=== PATIENT | female | born 1945 | race Caucasian/White ===

== ENCOUNTER 2016-11-02 00:40 | Inpatient (IN) | payer MEDICARE, OTHER ==
[2016-11-02] VITALS (7 sets, daily range): BP systolic 118–189; BP diastolic 57–79; PULSE 76–89; RESP 16–18; TEMP 96.5–98.9; O2SAT 75–100
[~2016-11-02] VITALS: Ht 165.1 cm; Wt 67.0 kg
[2016-11-02] MEDS ORDERED: GABA300C5 PO (02:06)
[2016-11-02] MEDS ORDERED: LEVE500 PO (02:06)
[2016-11-02] MEDS ORDERED: ROSU20 PO (02:06)
[2016-11-02] MEDS ORDERED: FLUO-1 PO (02:06)
[2016-11-02] MEDS ORDERED: ZOFR4TAB PO (02:07)
[2016-11-02] MEDS ORDERED: ASPI81CH CHEW (02:07)
[2016-11-02] MEDS ORDERED: DILA4TAB2 PO (02:08)
[2016-11-02] MEDS ORDERED: QUET50XR PO (02:08)
[2016-11-02] MEDS ORDERED: insulin (02:13)
[2016-11-02] MEDS ORDERED: HALOPERIDOL LACTATE 5 MG/ML AMP ONE (02:16)
[2016-11-02] MEDS ORDERED: diphenhydrAMINE HCL 50 MG/ML VIAL ONE (02:16)
[2016-11-02] MEDS ORDERED: HALOPERIDOL LACTATE 5 MG/ML AMP IM ONE (02:30)
[2016-11-02] MEDS ORDERED: diphenhydrAMINE HCL 50 MG/ML VIAL IM ONE (02:30)
[2016-11-02 02:36] LABS: BLOOD, URINE TRACE (NEG); GLUCOSE,URINE NEG (NEG); KETONE, URINE NEG (NEG); NITRITE,URINE NEG (NEG); PH, URINE 5.5 (5.0-8.5); SQUAMOUS EPITHELIAL CELL URINE 1 /hpf (0-5); URINE COLOR LIGHT-YELLOW (YELLW/STRAW)
[2016-11-02 02:41] LABS: COMMENT (UR) CULT NOT INDICATED; CULTURE IF INDICATED CULT NOT INDICATED
[2016-11-02 02:46] LABS: AMPHETAMINE, URINE NEG (NEG); BARBITURATES, URINE NEG (NEG); COCAINE, URINE NEG (NEG)
[2016-11-02] MEDS ORDERED: LORazepam 2 MG/ML VIAL IM ONE (03:15)
[2016-11-02 03:57] LABS: AUTOMATED NEUTROPHIL # 5.1 TH/MM3 (1.8-7.7); BASOPHIL % 0.3 % (0.0-2.0); EOSINOPHIL # 0.2 TH/MM3 (0-0.4); EOSINOPHIL % 2.2 % (0.0-4.0); HEMATOCRIT 42.6 % (35.0-46.0); HEMO FLAGS DIFF FINAL; LYMPH % 31.6 % (9.0-44.0); LYMPHOCYTE # 2.7 TH/MM3 (1.0-4.8); MEAN CELL VOLUME 93.1 FL (80.0-100.0); MEAN CORPUSCULAR HEMOGLOBIN 30.8 PG (27.0-34.0); MEAN CORPUSCULAR HGB CONC 33.1 % (32.0-36.0); MONO % 7.3 % (0.0-8.0); NEUT % 58.6 % (16.0-70.0); PLATELET COUNT 166 TH/MM3 (150-450); RED BLOOD COUNT 4.57 MIL/MM3 (4.00-5.30); RED CELL DISTRIBUTION WIDTH 13.2 % (11.6-17.2); WHITE BLOOD COUNT 8.6 TH/MM3 (4.0-11.0)
[2016-11-02 04:18] LABS: ALT (GPT) 22 U/L (10-53); ANION GAP 6 MEQ/L (5-15); AST (GOT) 16 U/L (15-37); BICARBONATE 31.6 MEQ/L (21.0-32.0); BLOOD UREA NITROGEN 6 MG/DL (7-18); CHLORIDE 106 MEQ/L (98-107); GLOMERULAR FILTRATION RATE 52 ML/MIN (>89); POTASSIUM 3.8 MEQ/L (3.5-5.1); SODIUM (NA) 144 MEQ/L (136-145)
[2016-11-02 04:20] LABS: ALKALINE PHOSPHATASE 75 U/L (45-117); TOTAL BILIRUBIN ADULT 0.3 MG/DL (0.2-1.0)
--- NOTE | 2016-11-02 05:02 | PD ---
HPI Chief Complaint: Psychiatric Symptoms Time Seen by Provider: 02:16 Travel History International Travel<30 days: No Contact w/Intl Traveler<30days: No Traveled to known affect area: No History of Present Illness HPI 71 year-old woman with a history of schizophrenia presents to the emergency department with worsening behavior changes in confusion over the past 2 months or so. states she's not really been taken off her medications. She has a history of UTI symptoms in the past. History Past Medical History Narrative Medical Paranoid schizophrenia Diabetes Seizure CAD, history of CABG Tetanus Vaccination: Unknown Influenza Vaccination: Yes : 3 Para: 3 Social History Alcohol Use: No Tobacco Use: No Allergies-Medications (Allergen,Severity, Reaction): Coded Allergies: Contrast Media (Verified Allergy, Unknown, 11/02/16) Iodine (Verified Allergy, Unknown, 11/02/16) Levaquin (Verified Allergy, Unknown, 11/02/16) Shellfish (Verified Allergy, Unknown, 11/02/16) Reported Meds & Prescriptions Reported Meds & Active Scripts Active Reported [insulin] Seroquel XR (Quetiapine Fumarate) 50 Mg Tab 25 Mg PO DAILY Dilaudid (Hydromorphone HCl) 4 Mg Tab 4 Mg PO Q6H PRN Aspirin 81 Mg Chew 81 Mg CHEW DAILY Zofran (Ondansetron HCl) 4 Mg Tab 4 Mg PO Q6HR PRN Crestor (Rosuvastatin Calcium) 20 Mg Tab 20 Mg PO DAILY Keppra (Levetiracetam) 500 Mg Tab 500 Mg PO BID Gabapentin 300 Mg Cap 300 Mg PO TID Prozac (Fluoxetine HCl) 10 Mg Cap 10 Mg PO DAILY Review of Systems ROS Limitations: Clinical Condition Physical Exam Narrative GENERAL: 71 year-old woman, no acute distress. SKIN: Focused skin assessment warm/dry. HEAD: Atraumatic. Normocephalic. NECK: Trachea midline. No JVD. CARDIOVASCULAR: Regular rate and rhythm. No murmur appreciated. RESPIRATORY: No accessory muscle use. Clear to auscultation. Breath sounds equal bilaterally. GASTROINTESTINAL: Abdomen soft, non-tender, nondistended. Hepatic and splenic margins not palpable. MUSCULOSKELETAL: No obvious deformities. No edema. NEUROLOGICAL: Awake and alert. No obvious cranial nerve deficits. Motor grossly within normal limits. Normal speech. PSYCHIATRIC: Patient with bizarre behavior, not making sense, appears delusional. Aggressive. Data Data Last Documented VS Vital Signs Date Time Temp Pulse Resp B/P Pulse Ox O2 Delivery O2 Flow Rate FiO2 11/02/16 04:16 77 18 158/70 98 Room Air 11/02/16 00:46 96.5 Orders Complete Blood Count With Diff (11/02/16 02:14) Comprehensive Metabolic Panel (11/02/16 02:14) Urinalysis - C+S If Indicated (11/02/16 02:14) Psych Screen (11/02/16 02:14) Drug Screen, Random Urine (11/02/16 02:14) Alcohol (Ethanol) (11/02/16 02:14) Haloperidol Inj (Haldol Inj) (11/02/16 02:30) Diphenhydramine Inj (Benadryl Inj) (11/02/16 02:30) Diphenhydramine Inj (Benadryl Inj) (11/02/16 02:16) Haloperidol Inj (Haldol Inj) (11/02/16 02:16) Lorazepam Inj (Ativan Inj) (11/02/16 03:15) Labs Laboratory Tests Test 11/02/16 11/02/16 11/02/16 02:14 02:15 03:40 Urine Opiates Screen NEG Urine Barbiturates Screen NEG Urine Amphetamines Screen NEG Urine Benzodiazepines Screen NEG Urine Cocaine Screen NEG Urine Cannabinoids Screen NEG Urine Color LIGHT-YELLOW Urine Turbidity CLEAR Urine pH 5.5 Urine Specific [place] 1.004 Urine Protein NEG mg/dL Urine Glucose (UA) NEG mg/dL Urine Ketones NEG mg/dL Urine Occult Blood TRACE Urine Nitrite NEG Urine Bilirubin NEG Urine Urobilinogen LESS THAN 2.0 MG/DL Urine Leukocyte Esterase NEG Urine RBC LESS THAN 1 /hpf Urine Squamous Epithelial 1 /hpf Cells Microscopic Urinalysis Comment CULT NOT INDICATED White Blood Count 8.6 TH/MM3 Red Blood Count 4.57 MIL/MM3 Hemoglobin 14.1 GM/DL Hematocrit 42.6 % Mean Corpuscular Volume 93.1 FL Mean Corpuscular Hemoglobin 30.8 PG Mean Corpuscular Hemoglobin 33.1 % Concent Red Cell Distribution Width 13.2 % Platelet Count 166 TH/MM3 Mean Platelet Volume 10.3 FL Neutrophils (%) (Auto) 58.6 % Lymphocytes (%) (Auto) 31.6 % Monocytes (%) (Auto) 7.3 % Eosinophils (%) (Auto) 2.2 % Basophils (%) (Auto) 0.3 % Neutrophils # (Auto) 5.1 TH/MM3 Lymphocytes # (Auto) 2.7 TH/MM3 Monocytes # (Auto) 0.6 TH/MM3 Eosinophils # (Auto) 0.2 TH/MM3 Basophils # (Auto) 0.0 TH/MM3 CBC Comment DIFF FINAL Differential Comment Sodium Level 144 MEQ/L Potassium Level 3.8 MEQ/L Chloride Level 106 MEQ/L Carbon Dioxide Level 31.6 MEQ/L Anion Gap 6 MEQ/L Blood Urea Nitrogen 6 MG/DL Creatinine 1.05 MG/DL Estimat Glomerular Filtration 52 ML/MIN Rate Random Glucose 110 MG/DL Calcium Level 8.9 MG/DL Total Bilirubin 0.3 MG/DL Aspartate Amino Transf 16 U/L (AST/SGOT) Alanine Aminotransferase 22 U/L (ALT/SGPT) Alkaline Phosphatase 75 U/L Total Protein 7.1 GM/DL Albumin 3.5 GM/DL Ethyl Alcohol Level LESS THAN 3 MG/DL [facility] Medical Decision Making Medical Screen Exam Complete: Yes Emergency Medical Condition: Yes Interpretation(s) LABS: CBC is unremarkable CMP is unremarkable UA is unremarkable Your injections negative Alcohol is negative Differential Diagnosis Schizophrenia, altered mental status,: Infection, other Narrative Course Medical decision making 71-year-old with history of schizophrenia presents emergent arm with aggressive bizarre psychotic behavior. Labs unremarkable. Patient is medically clear for psychiatric evaluation. Diagnosis Primary Impression: Schizophrenia Jorge Saavedra MD Nov 02, 2016 05:02
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
[2016-11-02] MEDS ORDERED: ALUMINUM/MAGNESIUM/SIMETH 30 ML CUP PO PRN (13:45)
[2016-11-02] MEDS ORDERED: MAGNESIUM HYDROXIDE SUSP 30 ML CUP PO PRN (13:45)
--- NOTE | 2016-11-02 17:20 | HHI.HP ---
Provisional Diagnosis Admission Date Nov 02, 2016 at 13:37 [place] I. 1. Schizophrenia, undifferentiated type, acute exacerbation [place] II. Deferred [place] III. History of CVA [place] V. GAF is 30 presently Certification of Person's Competence To Provide Express and Informed Consent I have personally examined Lucy Rucker , a person being served at [facility] on, Nov 02, 2016 17:20. Express and informed consent means consent voluntarily given in writing, by a competent person, after sufficient explanation and disclosure of the subject matter involved to enable the person to make a knowing and willful decision without any element of force, fraud, deceit, duress, or other form of constraint or coercion. This person is 18 years of age or older, is not now known to be incompetent to consent to treatment with a guardian advocate, and does not have a health care surrogate or proxy currently making medical treatment decisions. I have found this person to be one of the following: [] Competent to provide express and informed consent, as defined above, for voluntary admission to this facility and is competent to provide express and informed consent for treatment. He/she has the consistent capacity to make well reasoned, willful, and knowing decisions concerning his or her medical or mental health treatment. The person fully and consistently understands the purpose of the admission for examination/placement and is fully capable of personally exercising all rights assured under [place] [x] Incompetent to provide express and informed consent to voluntary admission, and this is incompetent to provide express and informed consent to treatment. The person must be transferred to involuntary status and a petition for a guardian advocate filed with the Circuit Court. [] Refusing to provide express and informed consent to voluntary admission but is competent to provide express and informed consent for treatment. The person must be discharged or transferred to involuntary status. Form shall be completed within 24 hours of a person's arrival at the receiving facility and filed in the clinical record of each person: 1. Admitted on a voluntary basis 2. Permitted to provide express and informed consent to his/her own treatment 3. Allowed to transfer from involuntary to voluntary status 4. Prior to permitting a person to consent to his or her own treatment after having been previously found incompetent to consent to treatment. History of Present Illness Capacity: Lacks Capacity HPI Ms. Rucker is a 71-year-old female with a history of schizophrenia who presented to the ED with worsening behavioral disturbance. Patient was evaluated by the psychiatric nurse practitioner and placed under the Mueller act. Reviewing the electronic medical record, I note that this is the patient's first visit to [place]. Patient seen and examined with nurse Joe. Chart reviewed. Case discussed with nursing staff. On my examination today, patient is presently calm. She says that she has come into the hospital because "my and I are not getting along. I show my love differently. I throw things." Apparently, the patient believes that by throwing objects and having her retrieve some, this is somehow displaying affection. She does admit that her mood is somewhat worse over the last year or so. Her sleep and appetite are fair. No hopelessness or worthlessness. She endorses vague suicidal ideation but no plan or intent. No reported urge to hurt herself on the inpatient psychiatric unit. No homicidal ideation. She denies audiovisual hallucinations. No delusions. Thought process somewhat concrete. The remainder of the psychiatric ROS is negative. Placed a telephone call to at the number listed in nurse osito Ortiz's note. He notes that the patient has a long-standing history of schizophrenia and had been hospitalized at the [facility] in [place] in 2007 when she had an episode of septic shock with subsequent CVA. She apparently received thrombolytic agents for the CVA and experienced ICH. Her course thereafter became somewhat difficult and she apparently shuttled between hospitals and rehabilitation facilities quite frequently. Following her CVA, she was taken off of all of her psychiatric medications and had had no psychotic decompensation until about a month ago. Without identifiable trigger, says that the patient has grown increasingly agitated, throwing objects and biting him. She also apparently has been speaking with God who has been telling her "everyone is lying." took the patient to her primary care doctor who started her on Seroquel and titrated the dose without much benefit so far. reports that the patient has a history of good tolerability of Seroquel in the past although the dose was much higher previously. He is concerned because she has recently taken a fall, and he feels this may be contributing. I have discussed the treatment plan with as outlined below, and he is in agreement with the plan. Past psychiatric history: Patient is likely an unreliable historian. She denies a history of psychiatric admissions but see above. The patient is not currently under the care of a psychiatrist she says. She denies a history of suicide attempts. Family history: Patient denies a family history of mental illness. Chemical dependency history: The patient denies any abuse of drugs or alcohol. Social history: The patient reports that she lives with her . She has 3 children and 1 grandchild. She has a 10th grade education. She previously worked as a proof reader. She denies any legal issues. She is a [employer]. Review of Systems ROS Limitations: Poor Historian Except as stated in HPI: all other systems reviewed are Neg Past Psych History Psychological trauma history No reported trauma history to me Violence risk - others (6 mos) Elevated. Patient has allegedly been agitated at home. Violence risk - self (6 mos) Indeterminate. Patient does articulate suicidal ideation but denies a history of previous suicide attempts. Substance Abuse History Drugs/Alcohol past 12 months See above Past Family Social History Coded Allergies: Contrast Media (Verified Allergy, Unknown, 11/02/16) Iodine (Verified Allergy, Unknown, 11/02/16) Levaquin (Verified Allergy, Unknown, 11/02/16) Shellfish (Verified Allergy, Unknown, 11/02/16) Past Medical History Includes a history of CVA with residual left-sided weakness Reported Medications [insulin] No Conflict Check 11/02/16 Quetiapine XR (Seroquel XR)50 Mg Tab25 Mg PO DAILY #30 TAB Ref 0 11/02/16 Hydromorphone (Dilaudid)4 Mg Tab4 Mg PO Q6H PRN (Pain Management) Ref 0 11/02/16 Aspirin 81 Mg Chew81 Mg CHEW DAILY Ref 0 11/02/16 Ondansetron (Zofran)4 Mg Tab4 Mg PO Q6HR PRN (NAUSEA OR VOMITING) Ref 0 11/02/16 Rosuvastatin (Crestor)20 Mg Tab20 Mg PO DAILY #30 TAB Ref 0 11/02/16 Levetiracetam (Keppra)500 Mg Zmh321 Mg PO BID #60 TAB Ref 0 11/02/16 Gabapentin 300 Mg Cyf445 Mg PO TID #90 CAP Ref 0 11/02/16 Fluoxetine (Prozac)10 Mg Cap10 Mg PO DAILY #30 CAP Ref 0 11/02/16 Current Medications Medications (Trade) Dose Ordered Sig/Karlie Route Start Time Stop Time Status Last Admin (Tylenol) 650 mg Q4H PRN PO 11/02/16 13:45 (Milk Of Magnesia Liq) 30 ml DAILY PRN PO 11/02/16 13:45 (Mag-Al Plus Susp Liq) 30 ml Q6H PRN PO 11/02/16 13:45 Family History See above Social History See above Patient's Strengths (min. 2) In a monitored setting. Supportive . Physical Exam Physical examination completed by ED provider. On my examination today, the patient appears to be in no acute physical distress. I do note that she has left-sided weakness and is presently in a wheelchair. No motoric abnormalities noted. Laboratories and vitals signs reviewed: Vital Signs Vital Signs Date Time Temp Pulse Resp B/P Pulse Ox O2 Delivery O2 Flow Rate FiO2 11/02/16 15:33 98.9 89 18 189/77 97 11/02/16 12:15 Room Air Lab Results Item Value Date Time White Blood Count 8.6 TH/MM3 11/02/16 0340 Hemoglobin 14.1 GM/DL 11/02/16 0340 Platelet Count 166 TH/MM3 11/02/16 0340 Sodium Level 144 MEQ/L 11/02/16 0340 Potassium Level 3.8 MEQ/L 11/02/16 0340 Chloride Level 106 MEQ/L 11/02/16 0340 Carbon Dioxide Level 31.6 MEQ/L 11/02/16 0340 Blood Urea Nitrogen 6 MG/DL L 11/02/16 0340 Creatinine 1.05 MG/DL H 11/02/16 0340 Aspartate Amino Transf (AST/SGOT) 16 U/L 11/02/16 0340 Alkaline Phosphatase 75 U/L 11/02/16 0340 Alanine Aminotransferase (ALT/SGPT) 22 U/L 11/02/16 0340 Urine Opiates Screen NEG 11/02/16 0214 Urine Barbiturates Screen NEG 11/02/16 0214 Urine Amphetamines Screen NEG 11/02/16 0214 Urine Benzodiazepines Screen NEG 11/02/16 0214 Urine Cocaine Screen NEG 11/02/16 0214 Urine Cannabinoids Screen NEG 11/02/16 0214 Ethyl Alcohol Level LESS THAN 3 MG/DL 11/02/16 0340 Urinalysis bland. Mental Status Examination Patient is in hospital gown. She is fairly disheveled. She is awake and alert and oriented to person and hospital only. Her registration is 3 out of 3 but her recall is 0 out of 3 at 5 minutes. She is able to spell the word world forwards and gives it backwards as DLORD. She is able to name 2 items and repeat a phrase. Motor exam as above. Speech is somewhat rambling but within normal limits for rate, tone and volume. Language and fund of knowledge seem impaired. Focus and concentration impaired. Memory seems somewhat impaired on clinical exam. Mood is reportedly somewhat depressed. Affect blunted. Thought process concrete. No loosening of associations. No kathrin delusions. Denies audiovisual hallucinations but see collateral from , above. Endorses suicidal ideation without plan or intent. No reported urge to hurt herself on the inpatient psychiatric unit. No homicidal ideation. Insight and judgment are poor. Assessment & Plan Problem List: (1) Schizophrenia ICD Code: F20.9 Assessment & Plan This is a 71-year-old female with psychiatric history as detailed above who is presently admitted to the inpatient psychiatric unit under a Mueller act. Collateral from suggests that the patient has been experiencing a psychotic decompensation over the last month or so after approximately 8 years of stability off of psychotropics. Primary care doctor has started Seroquel at low dose, but this has not yet brought her symptoms under good control. Patient requires psychiatric hospitalization at this time for safety, observation and stabilization. Admit inpatient. Involuntary status. I've completed first opinion. Consult for second opinion. Request healthcare surrogate and guardian advocate. Obtain head CT given report of recent fall. Check TSH, B12, vitamin D, lipid panel, hemoglobin A1c. Titrate Seroquel to 75 mg twice daily with plans to titrate further to effect. Continue Prozac as ordered. Continue general medical medications including gabapentin and Keppra, although the latter may be contributing somewhat to patient's dysphoria. To consider switching to a different antiepileptic. Haldol as needed for agitation, Ativan as needed for anxiety, Benadryl as needed for EPS her sleep. Consult to the hospitalist. Consult physical therapy. Falls precautions. Seizure precautions. Vital's every shift. Counselor to see and obtain collateral. Disposition planning. Estimated length of stay: One to 2 weeks. Discharge Planning Pending psychiatric stabilization. Request HC Surrog/Guard Advoc?: Yes Problem Qualifiers (1) Schizophrenia: Qualified Code: F20.3 - Undifferentiated schizophrenia Cyrus Contreras MD Nov 02, 2016 17:20
[2016-11-02] MEDS ORDERED: diphenhydrAMINE HCL 50 MG/ML VIAL IM PRN (18:30)
[2016-11-02] MEDS ORDERED: LORazepam 2 MG/ML VIAL IM PRN (18:30)
[2016-11-02] MEDS ORDERED: HALOPERIDOL 2 MG TAB PO PRN (18:30)
[2016-11-02] MEDS ORDERED: HALOPERIDOL LACTATE 5 MG/ML AMP IM PRN (18:30)
[2016-11-02] MEDS ORDERED: cloNIDine HCL 0.1 MG TAB PO PRN (18:45)
[2016-11-02] MEDS: ACETAMINOPHEN 325 MG TAB PO PRN (19:49)
[2016-11-02] MEDS: QUEtiapine FUMARATE 25 MG TAB PO SCH (21:00)
[2016-11-02] MEDS: levETIRAcetam 500 MG TAB PO SCH (22:17)
[2016-11-03 05:46] VITALS: BP 146/73; PULSE 79; RESP 18; TEMP 98.7; O2SAT 94
[2016-11-03] MEDS: ACETAMINOPHEN 325 MG TAB PO PRN (06:30)
[2016-11-03] MEDS ORDERED: DEXTROSE 50% IN WATER 50 ML VIAL(D50) IV PRN (08:00)
[2016-11-03] MEDS ORDERED: GLUCAGON 1 MG/ML VIAL OTHER PRN (08:00)
[2016-11-03] MEDS: levETIRAcetam 500 MG TAB PO SCH ×2 (09:20→21:32)
[2016-11-03] MEDS: ASPIRIN 81 MG CHEW TAB CHEW SCH (09:20)
[2016-11-03] MEDS: FLUoxetine HCL 10 MG CAP PO SCH (09:20)
[2016-11-03] MEDS: ATORVASTATIN 40 MG TAB PO SCH (09:21)
[2016-11-03] MEDS: GABAPENTIN 300 MG CAP PO SCH ×3 (09:21→21:32)
[2016-11-03] MEDS: QUEtiapine FUMARATE 25 MG TAB PO SCH ×2 (09:21→21:31)
[2016-11-03 10:27] LABS: ANION GAP 7 MEQ/L (5-15); BICARBONATE 26.9 MEQ/L (21.0-32.0); BLOOD UREA NITROGEN 10 MG/DL (7-18); CHLORIDE 104 MEQ/L (98-107); GLOMERULAR FILTRATION RATE 48 ML/MIN (>89); POTASSIUM 3.9 MEQ/L (3.5-5.1); SODIUM (NA) 138 MEQ/L (136-145)
--- NOTE | 2016-11-03 10:37 | HHI.PYPN ---
Subjective Remarks This is a request for second opinion. Patient was seen and case discussed with nursing and admission note reviewed. Patient remains with messages from God saying "take care." Alert and oriented 2. Cognitive deficits are evident. Behaving well on the unit and compliant with her medications. Still complaining of pain and we will make a switch to Motrin. Objective Alert: Yes [place]: Person (only), Place ([facility]) Mood: Anxious Affect: Labile Memory Intact: Comment (Poor. Not formally tetsted. ) Hallucinations: Auditory ("take care as ") Delusions: No Delusion Type: Other Suicidal: Ideation (deneis) Homicidal: Ideation (deneis) Insight/Judgment Poor Labs Test 11/03/16 09:30 Sodium Level 138 MEQ/L Potassium Level 3.9 MEQ/L Chloride Level 104 MEQ/L Carbon Dioxide Level 26.9 MEQ/L Anion Gap 7 MEQ/L Blood Urea Nitrogen 10 MG/DL Creatinine 1.12 MG/DL Estimat Glomerular Filtration 48 ML/MIN Rate Random Glucose 193 MG/DL Calcium Level 9.7 MG/DL Cholesterol Level 151 MG/DL Vitals/IOs Vital Signs Date Time Temp Pulse Resp B/P Pulse Ox O2 Delivery O2 Flow Rate FiO2 11/03/16 05:46 98.7 79 18 146/73 94 11/02/16 12:15 Room Air Intake and Output 11/02/16 11/02/16 11/03/16 08:00 16:00 00:00 Intake Total 120 ml 720 ml Balance 120 ml 720 ml Assessment & Plan Problem List: (1) Schizophrenia ICD Code: F20.9 Assessment & Plan I agree with first opinion to continue petition. Criteria include acute psychosis and increased agitation Justification for Cont. Inpt. Patient will decompensate in a less restrictive setting Request HC Surrog/Guard Advoc?: Yes Problem Qualifiers (1) Schizophrenia: Qualified Code: F20.3 - Undifferentiated schizophrenia Spike March DO Nov 03, 2016 10:37
[2016-11-03 10:53] LABS: CREATINE KINASE 179 U/L (26-192); HDL CHOLESTEROL 47.7 MG/DL (40.0-60.0); LDL CHOLESTEROL 34 MG/DL (0-99)
[2016-11-03] MEDS: INSULIN ASPART SUPPLEMENTAL SCALE SQ SCH ×3 (11:00→20:19)
--- NOTE | 2016-11-03 11:59 | PD.CONS ---
HPI Service [facility] Consult Requested By Psychiatry team Reason for Consult Medical management Primary Care Physician Unknown Diagnoses: History of Present Illness Written by Kristina Browne, acting as scribe for Dr. Garcia on 11/03/16 at 11: 37. Patient is a 71-year-old female with primary medical history of schizophrenia, diabetes, hypertension, CVA with left-sided deficit, seizure who came into the hospital for worsening behavior and increasing confusion over the past 2 months. She is now admitted to inpatient psychiatry unit for further evaluation. Consulted for medical management. Patient seen and examined today. Patient unable to verify most of her medical history and surgical history. She knows that she is in the hospital, able to tell names, unable to tell to date. Patient appears to have some expressive aphasia. Follows some simple commands. States she had a stroke. She was attempting to drink juice and she started coughing. Denies pain and discomfort. Denies SOB/ dyspnea. Denies chest pain, palpitations, headaches, dizziness. Denies fevers, chills, n/v/d. Denies dysuria. EMR records show she has seizure disorder controlled on Keppra, hyperlipidemia stable on Crestor and coronary artery disease status post CABG. Review of Systems ROS Limitations: Poor Historian Except as stated in HPI: all other systems reviewed are Neg Past Family Social History Allergies: Coded Allergies: Contrast Media (Verified Allergy, Unknown, 11/02/16) Iodine (Verified Allergy, Unknown, 11/02/16) Levaquin (Verified Allergy, Unknown, 11/02/16) Shellfish (Verified Allergy, Unknown, 11/02/16) Past Medical History CVA, left-sided deficits, left upper extremity contraction, left lower extremity foot drop DM 2 HTN Seizure HLD Schizophrenia Past Surgical History CABG Cholecystectomy Reported Medications Reported Meds & Active Scripts Active Reported [insulin] Seroquel XR (Quetiapine Fumarate) 50 Mg Tab 25 Mg PO DAILY Dilaudid (Hydromorphone HCl) 4 Mg Tab 4 Mg PO Q6H PRN Aspirin 81 Mg Chew 81 Mg CHEW DAILY Zofran (Ondansetron HCl) 4 Mg Tab 4 Mg PO Q6HR PRN Crestor (Rosuvastatin Calcium) 20 Mg Tab 20 Mg PO DAILY Keppra (Levetiracetam) 500 Mg Tab 500 Mg PO BID Gabapentin 300 Mg Cap 300 Mg PO TID Prozac (Fluoxetine HCl) 10 Mg Cap 10 Mg PO DAILY Active Ordered Medications Current Medications Medications (Trade) Dose Ordered Sig/Karlie Route Start Time Stop Time Status Last Admin (Tylenol) 650 mg Q4H PRN PO 11/02/16 13:45 11/03/16 06:30 (SEROquel) 75 mg BID PO 11/02/16 21:00 11/03/16 09:21 (Haldol) 2 mg TID PRN PO 11/02/16 18:30 (Haldol Inj) 2 mg TID PRN IM 11/02/16 18:30 (Ativan) 1 mg Q8H PRN PO 11/02/16 18:30 (Ativan Inj) 1 mg Q8H PRN IM 11/02/16 18:30 (Benadryl) 50 mg Q6H PRN PO 11/02/16 18:30 (Benadryl Inj) 50 mg Q6H PRN IM 11/02/16 18:30 (Aspirin Chew) 81 mg DAILY CHEW 11/03/16 09:00 11/03/16 09:20 (PROzac) 10 mg DAILY PO 11/03/16 09:00 11/03/16 09:20 (Neurontin) 300 mg TID PO 11/03/16 09:00 11/03/16 09:21 (Keppra) 500 mg BID PO 11/02/16 21:00 11/03/16 09:20 (Lipitor) 40 mg DAILY PO 11/03/16 09:00 11/03/16 09:21 (Catapres) 0.1 mg Q8HR PRN PO 11/02/16 18:45 11/02/16 20:17 (D50w (Vial) Inj) 50 ml UNSCH PRN IV 11/03/16 08:00 (Glucagon Inj) 1 mg UNSCH PRN OTHER 11/03/16 08:00 Family History Denies any family history of strokes Social History Denies alcohol use States she used to smoke before, unable to tell how much for how many years Denies illicit drug use Physical Exam Vital Signs Vital Signs Date Time Temp Pulse Resp B/P Pulse Ox O2 Delivery O2 Flow Rate FiO2 11/03/16 05:46 98.7 79 18 146/73 94 7/14/17 21:30 82 118/57 11/02/16 15:33 98.9 89 18 189/77 97 11/02/16 12:15 98.8 78 18 158/65 96 Room Air Physical Exam GENERAL: This is a well-nourished, well-developed patient, in no apparent distress. SKIN: No rashes, ecchymoses or lesions. Warm and dry. HEAD: Atraumatic. Normocephalic.. EYES: Pupils equal round and reactive. Extraocular motions intact. No scleral icterus. No injection or drainage. ENT: Nose without bleeding. Throat without erythema. Uvula midline. Airway patent. NECK: Trachea midline. Supple. CARDIOVASCULAR: Regular rate and rhythm without murmurs, gallops, or rubs. RESPIRATORY: Rhonchi bilaterally. No wheezes. GASTROINTESTINAL: Abdomen soft, non-tender, nondistended. Bowel sounds active 4 MUSCULOSKELETAL: Extremities without clubbing, cyanosis, or edema. NEUROLOGICAL: Awake and alert. Oriented to place, person. Motor and sensory grossly within normal limits. Left upper extremity contraction, left lower extremity flaccid, foot drop. Right upper extremity and right lower extremity 4 /5. Normal speech. Laboratory Laboratory Tests Test 11/03/16 09:30 Sodium Level 138 Potassium Level 3.9 Chloride Level 104 Carbon Dioxide Level 26.9 Anion Gap 7 Blood Urea Nitrogen 10 Creatinine 1.12 Estimat Glomerular Filtration 48 Rate Random Glucose 193 Calcium Level 9.7 Total Creatine Kinase 179 Triglycerides Level 346 Cholesterol Level 151 LDL Cholesterol 34 HDL Cholesterol 47.7 Cholesterol/HDL Ratio 3.16 Vitamin B12 Level 258 Thyroid Stimulating Hormone 2.350 3rd Gen Result Diagram: 11/02/16 0340 11/03/16 0930 Assessment and Plan Problem List: (1) CVA, old, hemiparesis ICD Code: I69.359 Status: Chronic (2) Schizophrenia ICD Code: F20.9 Status: Chronic (3) HLD (hyperlipidemia) ICD Code: E78.5 Status: Chronic (4) DM (diabetes mellitus) ICD Code: E11.9 Status: Chronic (5) HTN (hypertension) ICD Code: I10 Status: Chronic Assessment and Plan Patient is a 71-year-old female with primary medical history of schizophrenia, diabetes, hypertension, CVA with left-sided deficit, seizure who came into the hospital for worsening behavior and increasing confusion over the past 2 months. She is now admitted to inpatient psychiatry unit for further evaluation. Consulted for medical management. Schizophrenia - Managed by psychiatry team Increase confusion - UA negative - CT Head f/u results History of CVA HTN HLD History of CABG - Continue atorvastatin 40 mg daily, ASA 81 mg - May need to add low dose BP med if BP continues to be greater than 140s - Monitor BP trend. Clonidine when necessary for now Questionable aspiration - Unable to drink thin liquids - Nursing swallow evaluation at bedside - Consult speech to evaluate and treat - Aspiration precaution DM 2 - Insulin sliding scale - Check hemoglobin A1c - Monitor Accu-Cheks Neuropathy - Continue gabapentin use, may have to adjust dose secondary to increased creatinine Acute kidney injury, possible CK D, diabetes nephropathy - Unknown baseline, nurse to verify with - Avoid nephrotoxins - Encourage by mouth fluid intake - Monitor BMP DVT prop heparin Thank you for this consultation. We will follow patient with you. Code Status Full code Discussed Condition With Patient, nursing This note was transcribed by behzad Browne. I, Dr. Fabricio Garcia personally performed the history, physical exam, and medical decision making; and confirmed the accuracy of the information in the transcribed note. Authenticated by Dr. Fabricio Garcia on 11/03/16 at 11:37 Problem Qualifiers (1) Schizophrenia: Qualified Code: F20.3 - Undifferentiated schizophrenia Kristina Dutton Nov 03, 2016 11:59 Fabricio Garcia MD Nov 03, 2016 14:13
--- NOTE | 2016-11-03 13:58 | RADRPT ---
EXAM DATE/TIME: 11/03/2016 13:25 [place] COMPARISON: No previous studies available for comparison. INDICATIONS : Trauma, fall. RADIATION DOSE: 50.18 CTDIvol (mGy) MEDICAL HISTORY : Stroke. SURGICAL HISTORY : None. ENCOUNTER: Initial ACUITY: 1 day PAIN SCALE: Non-responsive LOCATION: Bilateral head TECHNIQUE: Multiple contiguous axial images were obtained of the head. Using automated exposure control and adjustment of the mA and/or kV according to patient size, radiation dose was kept as low as reasonably achievable to obtain optimal diagnostic quality images. DICOM format image data is av ailable electronically for review and comparison. FINDINGS: There is no evidence for intracranial hemorrhage, mass effect, mass lesions, or edema. The visualize d bony structures appear intact. Moderate degree of brain atrophy is seen. Slight to moderate periven tricular white matter changes are seen nonspecific mostly consistent with chronic small vessel ischem ic changes. There are no signs of acute infarction for technique. There is encephalomalacia in the r ight parietal lobe. CONCLUSION: Slight atrophic and small vessel ischemic changes without any evidence for acute hemorrhage or mass effect. There is no evidence of any significant hemorrhage or mass effect. Agustín Cobos MD on November 03, 2016 at 13:54 Board Certified Radiologist. This report was verified electronically.
[2016-11-03] MEDS ORDERED: LEVEMIR (18:49)
[2016-11-03] MEDS: HEPARIN SODIUM - SQ 10,000 UNITS/ML VIAL SQ SCH (21:31)
[2016-11-03] MEDS: IBUPROFEN 600 MG TAB PO PRN (21:32)
[2016-11-04] MEDS: INSULIN ASPART SUPPLEMENTAL SCALE SQ SCH ×4 (05:49→21:00)
[2016-11-04] MEDS: IBUPROFEN 600 MG TAB PO PRN ×3 (05:51→17:35)
[2016-11-04 06:00] VITALS: BP 117/56; PULSE 90; RESP 16; TEMP 98.1; O2SAT 96
[2016-11-04] MEDS: ATORVASTATIN 40 MG TAB PO SCH (11:04)
[2016-11-04] MEDS: HEPARIN SODIUM - SQ 10,000 UNITS/ML VIAL SQ SCH ×2 (11:04→21:17)
[2016-11-04] MEDS: levETIRAcetam 500 MG TAB PO SCH ×2 (11:05→21:17)
[2016-11-04] MEDS: QUEtiapine FUMARATE 25 MG TAB PO SCH ×2 (11:05→21:16)
[2016-11-04] MEDS: FLUoxetine HCL 10 MG CAP PO SCH (11:05)
[2016-11-04] MEDS: GABAPENTIN 300 MG CAP PO SCH ×2 (11:05→21:16)
[2016-11-04] MEDS: ASPIRIN 81 MG CHEW TAB CHEW SCH (11:05)
--- NOTE | 2016-11-04 13:05 | HHI.PYPN ---
Subjective Remarks Patient was seen and case discussed with nursing. Patient is sedated this afternoon. Denies auditory hallucinations today. Eating lunch and breakfast. Had an evaluation for speech therapy nursing. Behaving well on the unit, no outbursts Objective Alert: Yes [place]: Person (only), [facility] Mood: Anxious Affect: Labile Memory Intact: Comment (Poor. Not formally tetsted. ) Hallucinations: Auditory ("take care as ") Delusions: No Delusion Type: Other Suicidal: Ideation (deneis) Homicidal: Ideation (deneis) Insight/Judgment Poor Vitals/IOs Vital Signs Date Time Temp Pulse Resp B/P Pulse Ox O2 Delivery O2 Flow Rate FiO2 11/04/16 06:00 98.1 90 16 117/56 96 11/02/16 12:15 Room Air Intake and Output 11/03/16 11/03/16 11/04/16 08:00 16:00 00:00 Intake Total 240 ml 360 ml Balance 240 ml 360 ml Assessment & Plan Problem List: (1) Schizophrenia ICD Code: F20.9 Assessment & Plan Consider lowering Neurontin or Seroquel if sedation continues Justification for Cont. Inpt. Patient will decompensate in a less restrictive setting Request HC Surrog/Guard Advoc?: Yes Problem Qualifiers (1) Schizophrenia: Qualified Code: F20.3 - Undifferentiated schizophrenia Spike March DO Nov 04, 2016 13:05
[2016-11-04 14:29] LABS: HEMOGLOBIN A1a 1.2 %; HEMOGLOBIN A1b 1.2 %; HEMOGLOBIN Ao 82.6 %; HEMOGLOBIN F 1.1 %; HEMOGLOBIN LA1C 2.4 %
[2016-11-04] MEDS: LORazepam 1 MG TAB PO PRN (21:37)
[2016-11-05 05:34] VITALS: BP 111/56; PULSE 76; RESP 18; TEMP 98.1; O2SAT 95
[2016-11-05] MEDS: INSULIN ASPART SUPPLEMENTAL SCALE SQ SCH ×4 (06:02→20:52)
[2016-11-05] MEDS: ASPIRIN 81 MG CHEW TAB CHEW SCH (08:33)
[2016-11-05] MEDS: FLUoxetine HCL 10 MG CAP PO SCH (08:33)
[2016-11-05] MEDS: GABAPENTIN 300 MG CAP PO SCH ×2 (08:33→21:45)
[2016-11-05] MEDS: ATORVASTATIN 40 MG TAB PO SCH (08:33)
[2016-11-05] MEDS: QUEtiapine FUMARATE 25 MG TAB PO SCH (08:33)
[2016-11-05] MEDS: levETIRAcetam 500 MG TAB PO SCH ×2 (08:33→21:45)
[2016-11-05] MEDS: HEPARIN SODIUM - SQ 10,000 UNITS/ML VIAL SQ SCH ×2 (08:36→20:51)
[2016-11-05] MEDS: CHOLECALCIFEROL (VIT D3) 5000 UNIT CAP PO SCH (09:00)
--- NOTE | 2016-11-05 10:49 | HHI.PYPN ---
Subjective Remarks Patient seen and examined with nurse. Chart reviewed. Case discussed with nursing staff. Concern over the weekend for sedation. Patient reports to me that she has been feeling somewhat sleepy for the last 2 days or so. Remains somewhat paranoid regarding . Says that she is experiencing auditory hallucinations of God saying "we'll be fine." No side effects from medications besides possibly sedation. Complains of chronic low back pain and does take hydromorphone for this at home. No other physical complaints. Review of Systems ROS Limitations: Poor Historian Except as stated in HPI: all other systems reviewed are Neg Objective Alert: Yes [place]: Person Mood: Anxious Affect: Blunted Memory Intact: Comment (not assessed) Hallucinations: Auditory (as above) Delusions: No Delusion Type: Other (no delusions) Suicidal: Ideation (no SI) Homicidal: Ideation (no HI) Insight/Judgment Poor Remarks No abnormal motor movements noted. Thought process somewhat circumstantial. Grooming and hygiene poor. Labs Labs reviewed GFR improved. Vitals/IOs Vital Signs Date Time Temp Pulse Resp B/P Pulse Ox O2 Delivery O2 Flow Rate FiO2 11/05/16 05:34 98.1 76 18 111/56 95 11/02/16 12:15 Room Air Intake and Output 11/04/16 11/04/16 11/04/16 07:59 15:59 23:59 Intake Total 3840 ml Balance 3840 ml Assessment & Plan Problem List: (1) Schizophrenia ICD Code: F20.9 Assessment & Plan Replace Seroquel with less sedating Abilify 1 mg twice daily with plans to titrate to effect. I have ordered patient's home I pernell more phone at reduced dose given concerns for this potentiating sedation as well. Check and updated set of basic laboratories. Continue to monitor on the inpatient unit. Continue other medications and care as ordered. Justification for Cont. Inpt. Medication changes and process. High risk for decompensation in a less restrictive environment. Discharge Planning Pending psychiatric stabilization. Request HC Surrog/Guard Advoc?: Yes Problem Qualifiers (1) Schizophrenia: Qualified Code: F20.3 - Undifferentiated schizophrenia Cyrus Contreras MD Nov 05, 2016 10:49
[2016-11-05 10:53] LABS: BICARBONATE 29.2 MEQ/L (21.0-32.0); MAGNESIUM 1.8 MG/DL (1.5-2.5)
[2016-11-05] MEDS ORDERED: PILL SPLITTER OTHER PRN (14:00)
[2016-11-05] MEDS: HYDROmorphone HCL 2 MG TAB PO PRN ×2 (16:08→21:46)
[2016-11-05] MEDS ORDERED: QUEtiapine FUMARATE 25 MG TAB PO SCH (21:00)
[2016-11-05] MEDS: ARIPiprazole 2 MG TAB PO SCH (21:45)
[2016-11-06 00:28] LABS: ALT (GPT) 21 U/L (10-53); ANION GAP 12 MEQ/L (5-15); AST (GOT) 23 U/L (15-37); BICARBONATE 25.9 MEQ/L (21.0-32.0); BLOOD UREA NITROGEN 18 MG/DL (7-18); CHLORIDE 105 MEQ/L (98-107); GLOMERULAR FILTRATION RATE 48 ML/MIN (>89); SODIUM (NA) 143 MEQ/L (136-145)
[2016-11-06 00:30] LABS: ALKALINE PHOSPHATASE 88 U/L (45-117); TOTAL BILIRUBIN ADULT 0.3 MG/DL (0.2-1.0)
[2016-11-06] MEDS: HYDROmorphone HCL 2 MG TAB PO PRN ×3 (04:03→21:32)
[2016-11-06 06:00] VITALS: BP 118/56; PULSE 62; RESP 18; TEMP 98.3; O2SAT 98
[2016-11-06] MEDS: INSULIN ASPART SUPPLEMENTAL SCALE SQ SCH ×4 (06:29→21:11)
[2016-11-06 08:32] LABS: AUTOMATED NEUTROPHIL # 6.8 TH/MM3 (1.8-7.7); BASOPHIL # 0.1 TH/MM3 (0-0.2); BASOPHIL % 0.9 % (0.0-2.0); EOSINOPHIL # 0.2 TH/MM3 (0-0.4); EOSINOPHIL % 1.4 % (0.0-4.0); HEMATOCRIT 42.2 % (35.0-46.0); HEMO FLAGS DIFF FINAL; LYMPH % 26.7 % (9.0-44.0); LYMPHOCYTE # 2.9 TH/MM3 (1.0-4.8); MEAN CELL VOLUME 95.7 FL (80.0-100.0); MEAN CORPUSCULAR HEMOGLOBIN 31.8 PG (27.0-34.0); MEAN CORPUSCULAR HGB CONC 33.2 % (32.0-36.0); MONO % 7.5 % (0.0-8.0); NEUT % 63.5 % (16.0-70.0); PLATELET COUNT 178 TH/MM3 (150-450); RED BLOOD COUNT 4.41 MIL/MM3 (4.00-5.30); RED CELL DISTRIBUTION WIDTH 13.6 % (11.6-17.2); WHITE BLOOD COUNT 10.8 TH/MM3 (4.0-11.0)
[2016-11-06] MEDS: CHOLECALCIFEROL (VIT D3) 5000 UNIT CAP PO SCH (08:43)
[2016-11-06] MEDS: ARIPiprazole 2 MG TAB PO SCH ×2 (08:43→21:08)
[2016-11-06] MEDS: levETIRAcetam 500 MG TAB PO SCH ×2 (08:44→21:08)
[2016-11-06] MEDS: GABAPENTIN 300 MG CAP PO SCH ×2 (08:44→21:08)
[2016-11-06] MEDS: FLUoxetine HCL 10 MG CAP PO SCH (08:44)
[2016-11-06] MEDS: ASPIRIN 81 MG CHEW TAB CHEW SCH (08:44)
[2016-11-06] MEDS: ATORVASTATIN 40 MG TAB PO SCH (08:44)
[2016-11-06] MEDS: HEPARIN SODIUM - SQ 10,000 UNITS/ML VIAL SQ SCH ×2 (08:45→22:16)
[2016-11-06] MEDS ORDERED: BISACODYL EC 5 MG TABEC PO PRN (12:30)
--- NOTE | 2016-11-06 12:47 | HHI.PYPN ---
Subjective Remarks Patient seen and examined. Chart reviewed. Case discussed in treatment team. On my exam, patient is alert, no signs of ongoing sedation. Mood good. Denies auditory hallucinations. Back pain significantly lessened with reintroduction of hydromorphone. No other physical complaints. Denies side effects. Some psychotic symptoms overnight per nursing staff and some issues with constipation. Review of Systems ROS Limitations: Poor Historian Except as stated in HPI: all other systems reviewed are Neg Objective Alert: Yes [place]: Person Mood: Calm Affect: Appropriate Memory Intact: Comment (not formally assessed) Hallucinations: Other (denies AVH today) Delusions: No Delusion Type: Other (no delusional material) Suicidal: Ideation (no SI voiced) Homicidal: Ideation (no HI voiced) Insight/Judgment Poor Remarks No motor abnormalities noted. Labs Test 11/06/16 07:07 White Blood Count 10.8 TH/MM3 Red Blood Count 4.41 MIL/MM3 Hemoglobin 14.0 GM/DL Hematocrit 42.2 % Mean Corpuscular Volume 95.7 FL Mean Corpuscular Hemoglobin 31.8 PG Mean Corpuscular Hemoglobin 33.2 % Concent Red Cell Distribution Width 13.6 % Platelet Count 178 TH/MM3 Mean Platelet Volume 10.2 FL Neutrophils (%) (Auto) 63.5 % Lymphocytes (%) (Auto) 26.7 % Monocytes (%) (Auto) 7.5 % Eosinophils (%) (Auto) 1.4 % Basophils (%) (Auto) 0.9 % Neutrophils # (Auto) 6.8 TH/MM3 Lymphocytes # (Auto) 2.9 TH/MM3 Monocytes # (Auto) 0.8 TH/MM3 Eosinophils # (Auto) 0.2 TH/MM3 Basophils # (Auto) 0.1 TH/MM3 CBC Comment DIFF FINAL Differential Comment Labs reviewed. Vitals/IOs Vital Signs Date Time Temp Pulse Resp B/P Pulse Ox O2 Delivery O2 Flow Rate FiO2 11/06/16 06:00 98.3 62 18 118/56 98 11/02/16 12:15 Room Air Intake and Output 11/05/16 11/05/16 11/06/16 08:00 16:00 00:00 Intake Total 1320 ml Balance 1320 ml Assessment & Plan Problem List: (1) Schizophrenia ICD Code: F20.9 Assessment & Plan Titrate Abilify to 2 mg twice daily. Colace and Dulcolax PRN. Continue to monitor on the inpatient unit. Continue other medications and care as ordered. Justification for Cont. Inpt. Med changes. Risk for decompensation. Discharge Planning Pending stabilization. Possibly another 3-5 days. Request HC Surrog/Guard Advoc?: Yes Problem Qualifiers (1) Schizophrenia: Qualified Code: F20.3 - Undifferentiated schizophrenia Cyrus Contreras MD Nov 06, 2016 12:47
[2016-11-06] MEDS: IBUPROFEN 600 MG TAB PO PRN (16:24)
[2016-11-06 17:57] VITALS: BP 127/60; PULSE 97; RESP 18; O2SAT 98
--- NOTE | 2016-11-06 18:32 | HHI.PR ---
Blank section for building Written by Rosalva Prasad, acting as scribe for Dr. Cantu on 11/06/16 at 18:31. Chart reviewed patient appears medically stable at this time we'll sign off If patient's condition changes or further assistance is needed please reconsult. Recommended outpatient follow-up after discharge. Rosalva Prasad Nov 06, 2016 18:32
[2016-11-06] MEDS: DOCUSATE SODIUM 100 MG CAP PO SCH (21:07)
[2016-11-07 05:01] VITALS: BP 119/57; PULSE 90; RESP 14; TEMP 98.7; O2SAT 93
[2016-11-07] MEDS ORDERED: ONDANSETRON ODT 4 MG TAB PO ONE (05:15)
[2016-11-07 06:00] VITALS: BP 119/57; PULSE 90; RESP 14; TEMP 98.7
[2016-11-07] MEDS: INSULIN ASPART SUPPLEMENTAL SCALE SQ SCH ×4 (06:37→21:17)
--- NOTE | 2016-11-07 08:29 | RADRPT ---
EXAM DATE/TIME: 11/07/2016 07:58 [facility] COMPARISON: No previous studies available for comparison. INDICATIONS : Shortness of breath. MEDICAL HISTORY : Stroke. SURGICAL HISTORY : None. ENCOUNTER: Initial ACUITY: 1 day PAIN SCORE: 0/10 LOCATION: Bilateral chest FINDINGS: A single view of the chest demonstrates the lungs to be symmetrically aerated without evidence of mas s, infiltrate or effusion. Small area of linear atelectasis versus scarring within the lingula. The cardiomediastinal contours are unremarkable. Osseous structures are intact. Median sternotomy wire. Cholecystectomy clips. CONCLUSION: No acute disease. Roque Escobedo Jr., MD on November 07, 2016 at 8:27 Board Certified Radiologist. This report was verified electronically.
[2016-11-07] MEDS: CHOLECALCIFEROL (VIT D3) 5000 UNIT CAP PO SCH (09:04)
[2016-11-07] MEDS: HEPARIN SODIUM - SQ 10,000 UNITS/ML VIAL SQ SCH ×2 (09:04→20:19)
[2016-11-07] MEDS: GABAPENTIN 300 MG CAP PO SCH ×2 (09:04→20:19)
[2016-11-07] MEDS: ASPIRIN 81 MG CHEW TAB CHEW SCH (09:04)
[2016-11-07] MEDS: DOCUSATE SODIUM 100 MG CAP PO SCH (09:04)
[2016-11-07] MEDS: ARIPiprazole 2 MG TAB PO SCH ×2 (09:04→20:19)
[2016-11-07] MEDS: FLUoxetine HCL 10 MG CAP PO SCH (09:04)
[2016-11-07] MEDS: levETIRAcetam 500 MG TAB PO SCH ×2 (09:04→20:20)
[2016-11-07] MEDS: ATORVASTATIN 40 MG TAB PO SCH (09:05)
[2016-11-07] MEDS: HYDROmorphone HCL 2 MG TAB PO PRN ×2 (10:20→20:20)
[2016-11-07 11:56] LABS: AUTOMATED NEUTROPHIL # 6.5 TH/MM3 (1.8-7.7); BASOPHIL # 0.1 TH/MM3 (0-0.2); EOSINOPHIL # 0.2 TH/MM3 (0-0.4); EOSINOPHIL % 1.6 % (0.0-4.0); HEMATOCRIT 40.2 % (35.0-46.0); HEMO FLAGS DIFF FINAL; LYMPH % 27.5 % (9.0-44.0); LYMPHOCYTE # 2.8 TH/MM3 (1.0-4.8); MEAN CELL VOLUME 93.7 FL (80.0-100.0); MEAN CORPUSCULAR HEMOGLOBIN 32.2 PG (27.0-34.0); MEAN CORPUSCULAR HGB CONC 34.4 % (32.0-36.0); MONO % 6.8 % (0.0-8.0); NEUT % 63.1 % (16.0-70.0); PLATELET COUNT 197 TH/MM3 (150-450); RED BLOOD COUNT 4.29 MIL/MM3 (4.00-5.30); WHITE BLOOD COUNT 10.4 TH/MM3 (4.0-11.0)
--- NOTE | 2016-11-07 13:01 | HHI.PYPN ---
Subjective Remarks Patient seen and examined with counselor. Chart reviewed. Case discussed with RN. Per RN, patient developed emesis overnight and the hospitalist has been consulted. Briefly discussed with Dr. Cantu; constipation is suspected. On my exam, patient remains in mild discomfort but otherwise is calm. She denies suicidal or homicidal ideation. Denies audiovisual hallucinations. No delusional material. Denies side effects from medications. No physical complaints. Review of Systems ROS Limitations: Poor Historian Objective Alert: Yes [place]: Person Mood: Anxious (mild) Affect: Appropriate Memory Intact: Comment (not formally assessed) Hallucinations: Other (denies audiovisual hallucinations) Delusions: No Delusion Type: Other (no delusions elicited) Suicidal: Ideation (denies SI) Homicidal: Ideation (denies HI) Insight/Judgment Poor Remarks No motor abnormalities. Labs Test 11/07/16 11:25 White Blood Count 10.4 TH/MM3 Red Blood Count 4.29 MIL/MM3 Hemoglobin 13.8 GM/DL Hematocrit 40.2 % Mean Corpuscular Volume 93.7 FL Mean Corpuscular Hemoglobin 32.2 PG Mean Corpuscular Hemoglobin 34.4 % Concent Red Cell Distribution Width 13.0 % Platelet Count 197 TH/MM3 Mean Platelet Volume 10.4 FL Neutrophils (%) (Auto) 63.1 % Lymphocytes (%) (Auto) 27.5 % Monocytes (%) (Auto) 6.8 % Eosinophils (%) (Auto) 1.6 % Basophils (%) (Auto) 1.0 % Neutrophils # (Auto) 6.5 TH/MM3 Lymphocytes # (Auto) 2.8 TH/MM3 Monocytes # (Auto) 0.7 TH/MM3 Eosinophils # (Auto) 0.2 TH/MM3 Basophils # (Auto) 0.1 TH/MM3 CBC Comment DIFF FINAL Differential Comment Labs reviewed. CBC unremarkable. Last Impressions Chest X-Ray 11/07/16 0000 Signed Impressions: Service Date/Time: Monday, November 07, 2016 07:58 - CONCLUSION: No acute disease. Roque Escobedo Jr., MD Head CT 11/02/16 0000 Signed Impressions: Service Date/Time: Thursday, November 03, 2016 13:25 - CONCLUSION: Slight atrophic and small vessel ischemic changes without any evidence for acute hemorrhage or mass effect. There is no evidence of any significant hemorrhage or mass effect. K. Mike Cobos MD Vitals/IOs Vital Signs Date Time Temp Pulse Resp B/P Pulse Ox O2 Delivery O2 Flow Rate FiO2 11/07/16 06:00 98.7 90 14 119/57 11/07/16 05:01 93 Intake and Output 11/06/16 11/06/16 11/07/16 08:00 16:00 00:00 Intake Total 480 ml 840 ml Balance 480 ml 840 ml Assessment & Plan Problem List: (1) Schizophrenia ICD Code: F20.9 Assessment & Plan Continue Abilify as ordered. Appreciate hospitalist input. Continue to monitor on the inpatient unit. Continue other medications and care as ordered. Justification for Cont. Inpt. Complicating conditions. Risk for decompensation. Discharge Planning Psychiatrically, patient seems to be improving. Of her physical issues can be resolved, I would be hopeful for discharge by the end of the week. Counselor to reach out to patient's to discuss the matter. Request HC Surrog/Guard Advoc?: Yes Problem Qualifiers (1) Schizophrenia: Qualified Code: F20.3 - Undifferentiated schizophrenia Cyrus Contreras MD Nov 07, 2016 13:01
[2016-11-07] MEDS: RESP: ALBUTEROL 2.5 MG/IPRATROPIUM 0.5 MG NEB (SCH) NEB ×2 (16:15→20:00)
[2016-11-07] MEDS ORDERED: ONDANSETRON ODT 4 MG TAB PO PRN (16:45)
--- NOTE | 2016-11-07 16:54 | HHI.PR ---
Subjective Remarks Written by Rosalva Prasad, acting as scribe for Dr. Cantu on 11/07/16 at 16:47. Patient seen earlier today around 1300 Reconsult regarding evaluation respiratory change/ RO aspiration Patient is confused is a poor historian. Denies SOB appears in no acute distress. Per patient and nurse no report of cough congestion shortness of breath Nurse reports vomiting several times and no reported bowel movement 5 days. Patient complains of pain in her buttock region Objective Vitals Vital Signs Date Time Temp Pulse Resp B/P Pulse Ox O2 Delivery O2 Flow Rate FiO2 11/07/16 06:00 98.7 90 14 119/57 11/07/16 05:01 98.7 90 14 119/57 93 11/06/16 17:57 97 18 127/60 98 I/O 11/06/16 11/06/16 11/06/16 11/07/16 11/07/16 11/07/16 07:00 15:00 23:00 07:00 15:00 23:00 Intake Total 480 ml 840 ml 360 ml Output Total 120 ml Balance 480 ml 840 ml 240 ml Intake Oral 480 ml 840 ml 360 ml Output Emesis 120 ml # Voids 2 3 1 Result Diagram: 11/07/16 1125 11/05/16 0953 Objective Remarks GENERAL: This is a well-nourished, well-developed patient, in no apparent distress. SKIN: No rashes, ecchymoses or lesions. Warm and dry. HEAD: Atraumatic. Normocephalic.. EYES: Extraocular motions intact. No scleral icterus. No injection or drainage. CARDIOVASCULAR: Regular rate and rhythm without murmurs, gallops, or rubs. RESPIRATORY: faint expiratory wheezing GASTROINTESTINAL: Abdomen soft, non-tender, nondistended. Bowel sounds active 4 MUSCULOSKELETAL: Extremities without clubbing, cyanosis, or edema. NEUROLOGICAL: Awake and alert, confused. Left upper extremity contraction, left lower extremity flaccid, foot drop. Right upper extremity and right lower extremity 4/5. 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 She is now admitted to inpatient psychiatry unit for further evaluation. Consulted for medical management. Schizophrenia - Managed by psychiatry team Expiratory wheezing - Concern for aspiration per psychiatry, patient appears to be in no acute distress, no evidence of shortness of breath or cough, patient afebrile - Chest x-ray reviewed reveals no acute disease -Diet per speech therapy recommendations, chopped meats with gravy mechanical soft and thin liquids - Aspiration precaution - Do nebs twice a day - Continue to monitor respiratory status no indication for antibiotics at this time Vomiting Constipation- No reported bowel movement 5 day, occasional vomiting - Zofran as needed for nausea vomiting - Dulcolax suppository with if no results fleets enema -DC Colace will start Nataliya-Colace Increase confusion - UA negative - CT Head f/u results History of CVA HTN HLD History of CABG - Continue atorvastatin 40 mg daily, ASA 81 mg - Monitor BP trend. Clonidine when necessary for now DM 2 - Insulin sliding scale - Check hemoglobin A1c - Monitor Accu-Cheks Neuropathy - Continue gabapentin use, may have to adjust dose secondary to increased creatinine Acute kidney injury, possible CK D, diabetes nephropathy - Unknown baseline, nurse to verify with - Avoid nephrotoxins - Encourage by mouth fluid intake - Monitor BMP DVT prop heparin Discussed with nursing, patient This note was transcribed by scribe [Rosalva Prasad]. I, Dr. Tomas Cantu personally performed the history, physical exam, and medical decision making; and confirmed the accuracy of the information in the transcribed note. Authenticated by Dr. Tomas Cantu on 11/07/16 at 1700. Problem Qualifiers (1) Schizophrenia: Qualified Code: F20.3 - Undifferentiated schizophrenia Rosalva Prasad Nov 07, 2016 16:54 Tomas Cantu MD Nov 07, 2016 21:38
[2016-11-07] MEDS ORDERED: BISACODYL 10 MG SUPP RECTAL ONE (17:00)
[2016-11-07 18:00] VITALS: BP 158/70; PULSE 93; RESP 16; TEMP 98.2; O2SAT 90
[2016-11-07] MEDS ORDERED: SOD PHOSPHATE/SOD BIPHOSPHATE (ADULT) ENEMA 133ML RECTAL ONE (18:00)
[2016-11-07 20:18] VITALS: O2SAT 94
[2016-11-07] MEDS: DOCUSATE SODIUM 50 MG/SENNA 8.6 MG TAB PO SCH (20:20)
[2016-11-07] MEDS: IBUPROFEN 600 MG TAB PO PRN (20:20)
[2016-11-08 05:58] VITALS: BP 158/66; PULSE 92; RESP 18; TEMP 98
[2016-11-08] MEDS: INSULIN ASPART SUPPLEMENTAL SCALE SQ SCH ×4 (06:40→21:13)
[2016-11-08] MEDS: RESP: ALBUTEROL 2.5 MG/IPRATROPIUM 0.5 MG NEB (SCH) NEB (08:00)
[2016-11-08] MEDS: ARIPiprazole 2 MG TAB PO SCH ×2 (09:40→21:03)
[2016-11-08] MEDS: levETIRAcetam 500 MG TAB PO SCH ×2 (09:40→21:04)
[2016-11-08] MEDS: HEPARIN SODIUM - SQ 10,000 UNITS/ML VIAL SQ SCH ×2 (09:40→21:05)
[2016-11-08] MEDS: ATORVASTATIN 40 MG TAB PO SCH (09:40)
[2016-11-08] MEDS: GABAPENTIN 300 MG CAP PO SCH ×2 (09:41→21:04)
[2016-11-08] MEDS: DOCUSATE SODIUM 50 MG/SENNA 8.6 MG TAB PO SCH ×2 (09:41→21:04)
[2016-11-08] MEDS: CHOLECALCIFEROL (VIT D3) 5000 UNIT CAP PO SCH (09:41)
[2016-11-08] MEDS: FLUoxetine HCL 10 MG CAP PO SCH (09:42)
[2016-11-08] MEDS: ASPIRIN 81 MG CHEW TAB CHEW SCH (09:43)
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
[2016-11-08] MEDS: HYDROmorphone HCL 2 MG TAB PO PRN (11:05)
[2016-11-08] MEDS ORDERED: ALBUTEROL SULFATE 90 MCG/ACT HFA 18 GM INHALER INH PRN (12:45)
[2016-11-08] MEDS ORDERED: RESP: ALBUTEROL 2.5 MG/IPRATROPIUM 0.5 MG NEB (PRN) NEB (12:45)
[2016-11-08] MEDS: ALBUTEROL SULFATE 90 MCG/ACT HFA 18 GM INHALER INH SCH ×2 (13:05→18:00)
[2016-11-08 17:33] VITALS: BP 131/59; PULSE 83; RESP 16; TEMP 98.1; O2SAT 92
[2016-11-08] MEDS: LORazepam 1 MG TAB PO PRN (23:43)
[2016-11-08] MEDS: diphenhydrAMINE HCL 50 MG CAP PO PRN (23:43)
[2016-11-09 01:10] VITALS: O2SAT 95
[2016-11-09] MEDS: ALBUTEROL SULFATE 90 MCG/ACT HFA 18 GM INHALER INH SCH ×5 (01:21→20:38)
[2016-11-09] MEDS: INSULIN ASPART SUPPLEMENTAL SCALE SQ SCH ×4 (06:43→20:45)
[2016-11-09 06:50] VITALS: BP 130/80; PULSE 98; RESP 16; TEMP 98.2; O2SAT 93
--- NOTE | 2016-11-09 08:47 | EKG ---
Date Performed: 11/08/2016 Time Performed: 21:52:02 PTAGE: 71 years EKG: Sinus rhythm NONSPECIFIC T-WAVE ABNORMALITY BORDERLINE ECG NO PREVIOUS TRACING DOCTOR: Ryland Thomas Interpretating Date/Time 11/09/2016 08:45:27
[2016-11-09] MEDS: GABAPENTIN 300 MG CAP PO SCH ×2 (09:03→20:37)
[2016-11-09] MEDS: DOCUSATE SODIUM 50 MG/SENNA 8.6 MG TAB PO SCH ×2 (09:03→20:38)
[2016-11-09] MEDS: ARIPiprazole 2 MG TAB PO SCH ×2 (09:03→20:38)
[2016-11-09] MEDS: ATORVASTATIN 40 MG TAB PO SCH (09:04)
[2016-11-09] MEDS: levETIRAcetam 500 MG TAB PO SCH ×2 (09:04→20:37)
[2016-11-09] MEDS: ASPIRIN 81 MG CHEW TAB CHEW SCH (09:04)
[2016-11-09] MEDS: CHOLECALCIFEROL (VIT D3) 5000 UNIT CAP PO SCH (09:04)
[2016-11-09] MEDS: FLUoxetine HCL 10 MG CAP PO SCH (09:05)
[2016-11-09] MEDS: HEPARIN SODIUM - SQ 10,000 UNITS/ML VIAL SQ SCH ×2 (09:05→20:40)
[2016-11-09] MEDS: HYDROmorphone HCL 2 MG TAB PO PRN ×2 (09:36→19:35)
--- NOTE | 2016-11-09 09:47 | HHI.PR ---
Blank section for building Chart reviewed patient appears medically stable will sign off. If patient's condition changes or further assistance is needed please reconsult. Recommend patient follow up with PCP after DC Rosalva Prasad Nov 09, 2016 09:46
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
[2016-11-09 16:12] VITALS: BP 131/68; PULSE 86; RESP 16; TEMP 98.3; O2SAT 93
[2016-11-09] MEDS: diphenhydrAMINE HCL 50 MG CAP PO PRN (20:40)
[2016-11-10 06:12] VITALS: BP 170/80; PULSE 84; RESP 17; TEMP 98; O2SAT 95
[2016-11-10] MEDS: INSULIN ASPART SUPPLEMENTAL SCALE SQ SCH ×4 (06:57→22:08)
[2016-11-10] MEDS: HYDROmorphone HCL 2 MG TAB PO PRN (07:02)
[2016-11-10] MEDS: FLUoxetine HCL 10 MG CAP PO SCH (09:52)
[2016-11-10] MEDS: HEPARIN SODIUM - SQ 10,000 UNITS/ML VIAL SQ SCH ×2 (09:52→22:19)
[2016-11-10] MEDS: CHOLECALCIFEROL (VIT D3) 5000 UNIT CAP PO SCH (09:52)
[2016-11-10] MEDS: ARIPiprazole 2 MG TAB PO SCH ×2 (09:53→22:16)
[2016-11-10] MEDS: ATORVASTATIN 40 MG TAB PO SCH (09:53)
[2016-11-10] MEDS: levETIRAcetam 500 MG TAB PO SCH ×2 (09:53→22:16)
[2016-11-10] MEDS: GABAPENTIN 300 MG CAP PO SCH ×2 (09:53→22:16)
[2016-11-10] MEDS: DOCUSATE SODIUM 50 MG/SENNA 8.6 MG TAB PO SCH ×2 (09:54→22:16)
[2016-11-10] MEDS: ASPIRIN 81 MG CHEW TAB CHEW SCH (09:54)
[2016-11-10] MEDS: ALBUTEROL SULFATE 90 MCG/ACT HFA 18 GM INHALER INH SCH ×4 (09:55→22:17)
--- NOTE | 2016-11-10 12:26 | HHI.PYPN ---
Subjective Remarks Patient was seen and case discussed with nursing. Patient is alert and oriented 2. Eating well, swallowing well. Denies auditory visual hallucinations. Behaving well on the unit. She is tolerating her Abilify well with no eps Objective Alert: Yes [place]: Person Mood: Calm Affect: Restricted Memory Intact: Comment (not assessed) Hallucinations: Other (denies AVH) Delusions: No Delusion Type: Other (no delusions elicited) Suicidal: Ideation (denies SI) Homicidal: Ideation (denies HI) Insight/Judgment Poor Vitals/IOs Vital Signs Date Time Temp Pulse Resp B/P Pulse Ox O2 Delivery O2 Flow Rate FiO2 11/10/16 06:12 98.0 84 17 170/80 95 Intake and Output 11/09/16 11/09/16 11/09/16 07:59 15:59 23:59 Intake Total 240 ml 840 ml Output Total 2 ml Balance 240 ml 838 ml Assessment & Plan Problem List: (1) Schizophrenia ICD Code: F20.9 Assessment & Plan Continue current treatment plan Justification for Cont. Inpt. Patient will decompensate in a less restrictive setting Request HC Surrog/Guard Advoc?: Yes Problem Qualifiers (1) Schizophrenia: Qualified Code: F20.3 - Undifferentiated schizophrenia Spike March DO Nov 10, 2016 12:26
[2016-11-11 06:00] VITALS: BP_SYST 148; BP_SYST 162; BP_DIAS 93; BP_DIAS 98; PULSE 85; RESP 18; TEMP 97.5; O2SAT 94
[2016-11-11] MEDS: INSULIN ASPART SUPPLEMENTAL SCALE SQ SCH ×4 (06:23→21:55)
[2016-11-11] MEDS: ATORVASTATIN 40 MG TAB PO SCH (09:17)
[2016-11-11] MEDS: FLUoxetine HCL 10 MG CAP PO SCH (09:17)
[2016-11-11] MEDS: levETIRAcetam 500 MG TAB PO SCH ×2 (09:18→22:05)
[2016-11-11] MEDS: CHOLECALCIFEROL (VIT D3) 5000 UNIT CAP PO SCH (09:18)
[2016-11-11] MEDS: GABAPENTIN 300 MG CAP PO SCH ×2 (09:18→22:04)
[2016-11-11] MEDS: ASPIRIN 81 MG CHEW TAB CHEW SCH (09:18)
[2016-11-11] MEDS: HEPARIN SODIUM - SQ 10,000 UNITS/ML VIAL SQ SCH ×2 (09:19→22:05)
[2016-11-11] MEDS: DOCUSATE SODIUM 50 MG/SENNA 8.6 MG TAB PO SCH ×2 (09:19→21:00)
[2016-11-11] MEDS: ALBUTEROL SULFATE 90 MCG/ACT HFA 18 GM INHALER INH SCH ×4 (09:20→22:23)
[2016-11-11] MEDS: ARIPiprazole 2 MG TAB PO SCH ×2 (09:25→22:28)
--- NOTE | 2016-11-11 11:06 | HHI.PYPN ---
Subjective Remarks Patient was seen and case discussed with nursing. Patient is pleasant and cooperative with exam. Behaving well per nursing. Alert and oriented times 2. Remains with poor insight into her admission. Compliant with medications and tolerating them well Objective Alert: Yes [place]: Person, Place Mood: Calm Affect: Blunted Memory Intact: Comment (not assessed) Hallucinations: Other (denies AVH) Delusions: No Delusion Type: Other (no delusions elicited) Suicidal: Ideation (denies SI) Homicidal: Ideation (denies HI) Insight/Judgment Poor Vitals/IOs Vital Signs Date Time Temp Pulse Resp B/P Pulse Ox O2 Delivery O2 Flow Rate FiO2 11/11/16 06:00 97.5 85 18 148/98 94 162/93 Intake and Output 11/10/16 11/10/16 11/11/16 08:00 16:00 00:00 Intake Total 240 ml 240 ml 1200 ml Balance 240 ml 240 ml 1200 ml Assessment & Plan Problem List: (1) Schizophrenia ICD Code: F20.9 Assessment & Plan Continue current treatment plan Justification for Cont. Inpt. Patient would decompensate in a less restrictive setting Request HC Surrog/Guard Advoc?: Yes Problem Qualifiers (1) Schizophrenia: Qualified Code: F20.3 - Undifferentiated schizophrenia Spike March DO Nov 11, 2016 11:06
[2016-11-11 20:25] VITALS: BP 157/69; PULSE 80; RESP 18; TEMP 97.7; O2SAT 96
[2016-11-12 06:18] VITALS: BP 146/65; PULSE 92; RESP 16; TEMP 97.4; O2SAT 95
[2016-11-12] MEDS: INSULIN ASPART SUPPLEMENTAL SCALE SQ SCH ×3 (06:30→16:00)
[2016-11-12] MEDS: ARIPiprazole 2 MG TAB PO SCH (08:35)
[2016-11-12] MEDS: levETIRAcetam 500 MG TAB PO SCH (08:36)
[2016-11-12] MEDS: DOCUSATE SODIUM 50 MG/SENNA 8.6 MG TAB PO SCH (08:38)
[2016-11-12] MEDS: ATORVASTATIN 40 MG TAB PO SCH (08:38)
[2016-11-12] MEDS: FLUoxetine HCL 10 MG CAP PO SCH (08:39)
[2016-11-12] MEDS: CHOLECALCIFEROL (VIT D3) 5000 UNIT CAP PO SCH (08:39)
[2016-11-12] MEDS: ASPIRIN 81 MG CHEW TAB CHEW SCH (08:40)
[2016-11-12] MEDS: GABAPENTIN 300 MG CAP PO SCH (08:40)
[2016-11-12] MEDS: ALBUTEROL SULFATE 90 MCG/ACT HFA 18 GM INHALER INH SCH ×2 (09:00→11:49)
[2016-11-12] MEDS: HEPARIN SODIUM - SQ 10,000 UNITS/ML VIAL SQ SCH (09:00)
[2016-11-12] MEDS ORDERED: CHOL5000 PO (14:41)
[2016-11-12] MEDS ORDERED: ARIP1TAB5 PO (14:41)
--- NOTE | 2016-11-12 14:41 | HHI.DS ---
Psychiatry Discharge Summary Inpatient Psychiatric care?: Yes Advance Directive: No Reason Not Provided: Due to Patient Condition Mental Health AdvanceDirective: No Health Care Proxy: No Admission Admission Date Nov 02, 2016 at 13:37 Admission Diagnosis: (1) Schizophrenia ICD Code: F20.9 Brief History Ms. Rucker is a 71-year-old female with a history of schizophrenia who presented to the ED with worsening behavioral disturbance. Patient was evaluated by the psychiatric nurse practitioner and placed under the Mueller act. Reviewing the electronic medical record, I note that this is the patient's first visit to [facility]. Patient seen and examined with nurse Joe. Chart reviewed. Case discussed with nursing staff. On my examination today, patient is presently calm. She says that she has come into the hospital because "my and I are not getting along. I show my love differently. I throw things." Apparently, the patient believes that by throwing objects and having her retrieve some, this is somehow displaying affection. She does admit that her mood is somewhat worse over the last year or so. Her sleep and appetite are fair. No hopelessness or worthlessness. She endorses vague suicidal ideation but no plan or intent. No reported urge to hurt herself on the inpatient psychiatric unit. No homicidal ideation. She denies audiovisual hallucinations. No delusions. Thought process somewhat concrete. The remainder of the psychiatric ROS is negative. Placed a telephone call to at the number listed in nurse osito Ortiz's note. 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 She apparently received thrombolytic agents for the CVA and experienced ICH. Her course thereafter became somewhat difficult and she apparently shuttled between hospitals and rehabilitation facilities quite frequently. Following her CVA, she was taken off of all of her psychiatric medications and had had no psychotic decompensation until about a month ago. Without identifiable trigger, says that the patient has grown increasingly agitated, throwing objects and biting him. She also apparently has been speaking with God who has been telling her "everyone is lying." took the patient to her primary care doctor who started her on Seroquel and titrated the dose without much benefit so far. reports that the patient has a history of good tolerability of Seroquel in the past although the dose was much higher previously. He is concerned because she has recently taken a fall, and he feels this may be contributing. I have discussed the treatment plan with as outlined below, and he is in agreement with the plan. Past psychiatric history: Patient is likely an unreliable historian. She denies a history of psychiatric admissions but see above. The patient is not currently under the care of a psychiatrist she says. She denies a history of suicide attempts. Family history: Patient denies a family history of mental illness. Chemical dependency history: The patient denies any abuse of drugs or alcohol. Social history: The patient reports that she lives with her . She has 3 children and 1 grandchild. She has a 10th grade education. She previously worked as a inside sales coordinator. She denies any legal issues. She is a Orthodox. Tobacco Use In Past 30 Days: No Tobacco Past 30 Days Alcohol Use: Never Hospital Course Patient was admitted to a locked, inpatient psychiatric unit. A general medical consultation was obtained. Appropriate precautions were in place throughout patient's hospital stay. Patient was seen and examined daily on the unit by psychiatry and also visited by counselor. Psychotropic medications were adjusted. We initially tried adjusting the patient's Seroquel but found this too sedating and so switched to the less sedating Abilify, which was titrated to good effect with respect to the patient's psychosis. Patient tolerated the Abilify well without side effects. Patient had improvement in presenting psychiatric symptomatology. There was no evidence of any suicidality or homicidality on the inpatient unit. Patient's behavior improved with the benefit of psychopharmacologic treatment. Counselor has reached out to patient's who is desirous to have the patient discharged home today. Counselor did offer a home health care referral, but the patient's declined at this time. On the day of discharge: Patient seen and examined with counselor and nurse. Chart reviewed. Case discussed with nursing staff who reports that the patient has been no behavioral problem. On my examination today, the patient is in good spirits. She denies any suicidal or homicidal ideation, intent or plan on direct questioning. Denies any audiovisual hallucinations. No delusions elicited. Mood is good and there are no depressive or hypomanic/manic symptoms. Denies side effects from medications. No physical complaints. Weighing the acute, chronic, and protective factors and based on the available evidence, I president and ceo to reasonable degree of medical certainty that the patient is at low imminent risk of harm to self or others from a mental illness as defined under the [place] act and her level of function is adequate for outpatient care. The patient has maximized benefit from this inpatient psychiatric hospital stay and will be discharged today with psychiatric follow-up as arranged by counselor. Patient is also to follow-up with primary care. Patient to return to psychiatric emergency room for any concerning psychiatric symptoms as part of a general safety plan. Results Blood Pressure 146 / 65 Vital Signs Date Time Temp Pulse Resp B/P Pulse Ox O2 Delivery O2 Flow Rate FiO2 11/12/16 06:18 97.4 92 16 146/65 95 Item Value Date Time White Blood Count 10.4 TH/MM3 11/07/16 1125 Hemoglobin 13.8 GM/DL 11/07/16 1125 Platelet Count 197 TH/MM3 11/07/16 1125 Sodium Level 143 MEQ/L 11/05/16 0953 Potassium Level 4.0 MEQ/L 11/05/16 0953 Chloride Level 105 MEQ/L 11/05/16 0953 Carbon Dioxide Level 25.9 MEQ/L 11/05/16 0953 Blood Urea Nitrogen 18 MG/DL 11/05/16 0953 Creatinine 1.13 MG/DL H 11/05/16 0953 Aspartate Amino Transf (AST/SGOT) 23 U/L 11/05/16 0953 Alanine Aminotransferase (ALT/SGPT) 21 U/L 11/05/16 0953 Alkaline Phosphatase 88 U/L 11/05/16 0953 Vitamin B12 Level 258 PG/ML 11/03/16 0930 25-Hydroxy Vitamin D Total 11.7 ng/ML L 11/03/16 0930 Thyroid Stimulating Hormone 3rd Gen 2.350 uIU/ML 11/03/16 0930 Urine Opiates Screen NEG 11/02/16 0214 Urine Barbiturates Screen NEG 11/02/16 0214 Urine Amphetamines Screen NEG 11/02/16 0214 Urine Benzodiazepines Screen NEG 11/02/16 0214 Urine Cocaine Screen NEG 11/02/16 0214 Urine Cannabinoids Screen NEG 11/02/16 0214 Ethyl Alcohol Level LESS THAN 3 MG/DL 11/02/16 0340 Summary of Procedures None done. Imaging Last Impressions Chest X-Ray 11/07/16 0000 Signed Impressions: Service Date/Time: Monday, November 07, 2016 07:58 - CONCLUSION: No acute disease. Roque Escobedo Jr., MD Head CT 11/02/16 0000 Signed Impressions: Service Date/Time: Thursday, November 03, 2016 13:25 - CONCLUSION: Slight atrophic and small vessel ischemic changes without any evidence for acute hemorrhage or mass effect. There is no evidence of any significant hemorrhage or mass effect. Agustín Cobos MD Pending results at discharge: No Medications # of Antipsychotic meds at D/C: 1 Approp Antipsych med options 1 - Minimum of three failed multiple trials of monotherapy. 2 - Documented plan to taper to monotherapy due to previous use of multiple meds OR cross-taper in progress at D/C. 3 - Documentation of augmentation of Clozapine. 4 - Justification other than those listed in allowable values 1-3, document here : Discharge Discharge Date: Nov 12, 2016 Discharge Diagnosis: (1) Schizophrenia Diagnosis: Principal (improved versus admission) ICD Code: F20.9 Mental Status Exam at Disch Patient is casually dressed. She is somewhat disheveled but maintaining basic hygiene. She is awake and alert and oriented to person and hospital at least. No new motor abnormalities noted. Patient does have ongoing left-sided weakness from her history of CVA. Speech within normal limits for rate, tone and volume. Mood is good and affect is full and reactive. Thought process fairly linear. No loosening of associations. No delusions elicited. Denies audiovisual hallucinations. Denies suicidal or homicidal ideation, intent or plan. Insight and judgment are chronically poor. Pt Condition on Discharge: Stable Discharge Disposition: Discharge Home Discharge Instructions Diet Instructions: Diabetic Diet Activities you can perform: Weight Bearing as Lauren Scheduled Appointment: as per counselor's notes New Medications: Aripiprazole (Abilify) 10 Mg Tab 5 MG PO BID Mental Health Days 15 Ref 1 TAB Cholecalciferol (Vitamin D3) 5,000 Unit Cap 5000 UNITS PO DAILY Vitamin D Supplement Days 15 Ref 1 CAP Continued Medications: Aspirin (Aspirin) 81 Mg Chew 81 MG CHEW DAILY Ref 0 TAB Fluoxetine (Prozac) 10 Mg Cap 10 MG PO DAILY #30 Ref 0 CAP Gabapentin (Gabapentin) 300 Mg Cap 300 MG PO TID #90 Ref 0 CAP Hydromorphone (Dilaudid) 4 Mg Tab 4 MG PO Q6H PRN Pain Management Ref 0 TAB Levetiracetam (Keppra) 500 Mg Tab 500 MG PO BID Control Seizures #60 Ref 0 TAB Rosuvastatin (Crestor) 20 Mg Tab 20 MG PO DAILY Cholesterol Management #30 Ref 0 TAB ([insulin]) Discontinued Medications: Insulin Detemir Inj (Levemir Inj) 1,000 unit/ 10 ML Vial 10 UNITS .ROUTE DAILY Do not mix with any other Insulin. Blood Sugar Management Ref 0 VIAL Ondansetron (Zofran) 4 Mg Tab 4 MG PO Q6HR PRN NAUSEA OR VOMITING Ref 0 TAB Quetiapine XR (Seroquel XR) 50 Mg Tab 25 MG PO DAILY #30 Ref 0 TAB Discharge Time <= 30 minutes Discharge/Advance Care Plan Health Problems: (1) Schizophrenia Goals to promote your health * To prevent worsening of your condition and complications * To maintain your health at the optimal level Directions to meet your goals Take your medications as prescribed Follow your dietary instruction Follow activity as directed Keep your appointments as scheduled Take your immunizations and boosters as scheduled If your symptoms worsen call your PCP, if no PCP go to Urgent Care Center or Emergency Room For 12/11 questions related to your inpatient stay or results of tests pending at discharge, please contact Dr. Cyrus Contreras at Smoking is Dangerous to Your Health. Avoid second hand smoking Problem Qualifiers (1) Schizophrenia: Qualified Code: F20.3 - Undifferentiated schizophrenia Cyrus Contreras MD Nov 12, 2016 14:41
== END 2016-11-12 16:55 | disposition home or self-care (01) | DRG 885 ==
LOC: NEPE 00:40 → NEDA 13:37 → H250 14:30
PROVIDERS: ADMIT Psychiatry & Neurology Psychiatry; ATTEND Psychiatry & Neurology Psychiatry
DX: F20.3 Undifferentiated schizophrenia (principal); N17.9 Acute kidney failure, unspecified; I69.354 Hemiplegia and hemiparesis following cerebral infarction affecting left non-dominant side; E11.21 Type 2 diabetes mellitus with diabetic nephropathy; G62.9 Polyneuropathy, unspecified; I25.10 Atherosclerotic heart disease of native coronary artery without angina pectoris; E11.9 Type 2 diabetes mellitus without complications; I10 Essential (primary) hypertension; G40.909 Epilepsy, unspecified, not intractable, without status epilepticus; E78.5 Hyperlipidemia, unspecified; M21.372 Foot drop, left foot; R05 Cough; M54.5 Low back pain; G89.29 Other chronic pain; K59.00 Constipation, unspecified; R06.2 Wheezing; Z79.4 Long term (current) use of insulin; Z79.82 Long term (current) use of aspirin; Z79.899 Other long term (current) drug therapy; Z95.1 Presence of aortocoronary bypass graft; Z87.891 Personal history of nicotine dependence; Z91.81 History of falling
CPT/HCPCS: 70450; 71010; 80048; 80053; 80061; 80307; 81001; 82306; 82550; 82607; 82948; 83036; 83735; 84443; 85025; 93005; 94640; 94664; 96372; J1200; J1630; J1644; J1815; J2060; Q0163